=== PATIENT | male | born 1970 | race Caucasian/White ===

== ENCOUNTER → 2017-07-07 | Outpatient (CLI) | payer BC, OTHER ==
[~2017-07-07] VITALS: Ht 175.3 cm; Wt 102.9 kg
[~2017-07-07] MED LIST: ADVIL,NUPRIN,M200 MG PO; CLARITIN,ALAVAR10 MG PO; COUMADIN,JANTOVE1 MG PO; DAY TIME COLD-237 ML PO; DILAUDID2 MG PO; FEOSOL325 MG PO; LIDODERM 5% P1 PATCH TP; MULTIVITAMIN PACK PO; Non-Formulary PO; OxyCONTIN PO; SENOKOT S,PE1 TABLET PO; TAMIFLU30 MG PO; TOPROL XL50 MG PO; Tylenol Regular Stre PO; ZESTORETIC 20-1 EAC2 PO
== END | disposition home or self-care (01) ==
LOC: AMB 05-30 10:00
DX: D12.2 Benign neoplasm of ascending colon (principal); D12.3 Benign neoplasm of transverse colon; K57.30 Diverticulosis of large intestine without perforation or abscess without bleeding; I10 Essential (primary) hypertension; J45.909 Unspecified asthma, uncomplicated; E66.9 Obesity, unspecified; Z68.33 Body mass index [BMI] 33.0-33.9, adult
CPT/HCPCS: 88305; 93005; J3010